=== PATIENT | female | born 1975 | race Caucasian/White ===

== ENCOUNTER 2017-12-29 13:12 | Emergency (ER) | payer BC, OTHER ==
[2017-12-29 13:19] VITALS: BP 157/87; PULSE 85; TEMP 98.7; BMI 29.2
[2017-12-29] MEDS ORDERED: IBUPROFEN 400 MG TABLET (FP) PO ONE ×2 (14:45→15:27)
--- NOTE | 2017-12-29 15:07 | PDOC ---
History of Present Illness - General Chief Complaint: Injury Stated Complaint: INJURY/ WORK RELATED Time Seen by Provider: 12/29/17 14:36 History Source: Patient Exam Limitations: No Limitations - History of Present Illness Initial Comments: 12/29/17 15:00 42 yr female fell on wet steps at work. injured low back and coccyx.no head trauma no LOC Occurred: reports: just prior to arrival Severity: reports: moderate Past History - Past Medical History Allergies/Adverse Reactions: Allergies Allergy/AdvReac Type Severity Reaction Status Date / Time No Known Allergies Allergy Verified 12/29/17 13:16 Home Medications: Ambulatory Orders Ibuprofen 800 mg PO TID PRN #20 tablet 12/29/17 COPD: No Diabetes: Yes (type II) - Suicide/Smoking/Psychosocial Hx Smoking History: Never smoked Have you smoked in the past 12 months: No Information on smoking cessation initiated: No Hx Alcohol Use: No Drug/Substance Use Hx: No Review of Systems - Review of Systems Able to Perform ROS?: Yes Is the patient limited Pashto proficient: No Constitutional: No: Symptoms Reported HEENTM: No: Symptoms Reported Respiratory: No: Symptoms reported Cardiac (ROS): No: Symptoms Reported ABD/GI: No: Symptoms Reported : No: Symptoms Reported Musculoskeletal: Yes: Symptoms Reported *Physical Exam - Vital Signs Last Vital Signs Temp Pulse Resp BP Pulse Ox 98.7 F 85 18 157/87 98 12/29/17 13:16 12/29/17 13:16 12/29/17 13:16 12/29/17 13:16 12/29/17 13:16 - Physical Exam General Appearance: Yes: Nourished, Appropriately Dressed HEENT: positive: EOMI, CHETAN Neck: positive: Supple. negative: Tender Respiratory/Chest: positive: Lungs Clear, Normal Breath Sounds. negative: Chest Tender Cardiovascular: positive: Regular Rhythm, Regular Rate Gastrointestinal/Abdominal: positive: Normal Bowel Sounds, Soft. negative: Tender Musculoskeletal: positive: Normal Inspection, Vertebral Tenderness (coccyx lumbar vetebral tenderness) Extremity: positive: Normal Capillary Refill, Normal Inspection, Normal Range of Motion Integumentary: positive: Normal Color, Dry, Warm Neurologic: positive: advertising solicitor II-XII NML intact, Fully Oriented, Alert, Normal Mood/ Affect ED Treatment Course - RADIOLOGY Radiology Studies Ordered: Category Date Time Status COCCYX [RAD] Stat Radiology 12/29/17 14:45 Ordered SPINE-LUMBAR SACRAL [RAD] Stat Radiology 12/29/17 14:45 Ordered Medical Decision Making - Medical Decision Making 12/29/17 15:08 cc: s/p slip and fall injured coccyx and low back no head trauma no LOC no abd pain or discomfort *DC/Admit/Observation/Transfer Diagnosis at time of Disposition: Coccyx contusion Qualifiers: Encounter type: initial encounter Qualified Code(s): S30.0XXA - Contusion of lower back and pelvis, initial encounter - Discharge Dispostion Disposition: HOME Condition at time of disposition: Good - Prescriptions Prescriptions: Ibuprofen 800 mg PO TID PRN #20 tablet PRN Reason: Pain - Referrals Referrals: Rickie Rene MD [Staff Physician] - - Patient Instructions Additional Instructions: apply ice pack every 2hrs for 20 minutes to area of pain take ibuprofen 800mg every 8hrs for pain use a soft donut shaped ring to sit on for comfort follow with the orthopedist for follow up - Post Discharge Activity Forms/Work/School Notes: Back to Work
[2017-12-29 15:34] LABS: HCG,QUALITATIVE URINE Negative
[2017-12-29 15:36] LABS: URINE APPEARANCE CLEAR; URINE BILIRUBIN NEGATIVE (<2.0 mg/dL); URINE COLOR LTYELLOW; URINE GLUCOSE (UA) 3+ (NEGATIVE); URINE KETONE 1+ (NEGATIVE); URINE LEUK ESTERASE NEGATIVE (NEGATIVE); URINE NITRITE NEGATIVE (NEGATIVE); URINE PROTEIN NEGATIVE (NEGATIVE); URINE UROBILINOGEN NEGATIVE mg/dL (0.2-1.0)
== END 2017-12-29 16:05 | disposition home or self-care (01) ==
LOC: JERFT 13:12
DX: S30.0XXA Contusion of lower back and pelvis, initial encounter (principal); W01.0XXA Fall on same level from slipping, tripping and stumbling without subsequent striking against object, initial encounter; Y93.89 Activity, other specified; Y92.89 Other specified places as the place of occurrence of the external cause; Y99.0 Civilian activity done for income or pay; E11.9 Type 2 diabetes mellitus without complications
CPT/HCPCS: 72100-TC-FY; 72220-TC-FY; 81003; 84703; 99281-25